=== PATIENT | male | born 1990 | race Caucasian/White ===

== ENCOUNTER 2021-08-10 08:26 | Emergency (ER) | payer MEDICAID ==
[~2021-08-10] VITALS: Ht 177.8 cm; Wt 73.5 kg
[2021-08-10] MEDS ORDERED: TETANUS-DIPTH-ACEL PERTUSSIS 0.5ML SYR Tdap IM ONE (09:30)
[2021-08-10 09:51] VITALS: BP 127/84
== END 2021-08-10 10:00 | disposition home or self-care (01) ==
LOC: ER 08:26
DX: S61.512A Laceration without foreign body of left wrist, initial encounter (principal); S61.552A Open bite of left wrist, initial encounter; Z88.1 Allergy status to other antibiotic agents; W54.0XXA Bitten by dog, initial encounter; Y93.89 Activity, other specified; Y92.89 Other specified places as the place of occurrence of the external cause; Y99.8 Other external cause status
CPT/HCPCS: 12002; 90471; 90715